=== PATIENT | male | born 1985 | race Caucasian/White ===

== ENCOUNTER 2024-08-05 14:36 | Emergency (ER) | payer OTHER, SELFPAY ==
[2024-08-05] VITALS (14 sets, daily range): BP systolic 120–125; BP diastolic 75–87; PULSE 57–64; RESP 8–25; TEMP 37.2; O2SAT 94–99
--- NOTE | 2024-08-05 14:45 | RT.EKG_ITS ---
APPROVED REPORT Exam: Resting ECG Reason for Exam: Chest pain Patient Location: E HR:65 bpm ECG Measurements Heart Rate 65 AXIS SC 142 P 52 QRSd 85 QRS -15 QT 414 T -19 QTc 431 Conclusion Sinus rhythm 65 normal axis no stemi
--- NOTE | 2024-08-05 15:15 | DI.RAD_ITS ---
Exam(s) XR CHEST 2V PA LATERAL EXAM: XR CHEST 2V PA LATERAL CLINICAL HISTORY: chest pain TECHNIQUE: 2D digital imaging was performed. Two views. COMPARISON: No exams were available for comparison FINDINGS: HEART: Normal size. Aorta: Not dilated. PULMONARY VASCULATURE: Normal. MEDIASTINUM: Unremarkable. LUNGS: Clear. PLEURAL SPACE: No pleural effusion or pneumothorax. BONE:Unremarkable for age. SOFT TISSUES: Unremarkable. IMPRESSION: No acute abnormality. DATA REPOSITORY: RADIATION DOSE DELIVERED:
--- NOTE | 2024-08-05 15:19 | ED.GENADUL_ITS ---
Discharge Plan Disposition Patient Disposition: Home Discharge Details Clinical Impression: Chest pain Primary Care Provider: [facility] [place] [place] ED Provider: Yari Caruso Home Meds and New Rx's Prescriptions: No Action riboflavin (vitamin B2) 1 tab PO DAILY propranolol 60 mg capsule,extended release 24 hr 60 mg PO DAILY Patient Comments: Pt takes for palpitations Discharge Instructions Instructions: Chest Pain (DC) Additional Instructions: - ER work up is unremakrable. No signs of acute problem with your heart - Pain more likely to be reflux or muscle strain. you can try tums, pepic, motrin to help with these. HPI General Date/Time Provider Initiated Documentation: 08/05/24 15:10 . Limitations to Documentation: no limitations . Information obtained by: patient . HPI Narrative: 39-year-old gentleman without significant past medical history presents for evaluation of chest pain. Reports onset of left-sided chest pain yesterday. It is intermittent. He cannot identify any exacerbating or relieving factors. Not associated with any shortness of breath. Does have some mild nausea and just does not feel well. He reports that he has been doing a house painting project since yesterday but does not feel that this is associated with the painting. 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 Pain is over the left chest. Does not radiate. He has never had pain like this before. He says that it may be some really bad heartburn but he is not sure. He denies smoking history. He reports that he takes propranolol for palpitations but no high blood pressure history or diabetes. No significant family coronary history. Related Data Home Medications ?Medication ?Instructions ?Recorded ?Confirmed propranolol 60 mg capsule,24 60 mg PO DAILY 08/05/24 08/05/24 hr,extended release riboflavin (vitamin B2) 1 tab PO DAILY 08/05/24 08/05/24 Allergies Allergy/AdvReac Type Severity Reaction Status Date / Time No Known Allergies Allergy Verified 08/05/24 14:51 General Stated Complaint: Chest Pain EARNESTINE: 3 Exam Narrative Exam Narrative: Review of Systems: All systems reviewed & are unremarkable except as noted in HPI and below Well-developed, no acute distress NCAT PERRL, normal conjunctiva RRR no murmur, no chest wall tenderness Unlabored respiratory effort, CTAB Nondistended abdomen Extremities w/o edema Course Vital Signs Vital signs: Vital Signs Temperature 37.2 C 10/10/24 14:46 Pulse 64 08/05/24 14:46 Respiratory Rate 16 08/05/24 14:46 Blood Pressure 125/84 08/05/24 14:46 Pulse Oximetry 97 08/05/24 14:46 Temperature 37.2 C 08/05/24 14:46 Temperature Source Oral 08/05/24 14:46 Pulse 64 08/05/24 14:46 Respiratory Rate 16 08/05/24 14:46 Respiratory Effort Normal, Non-Labored 08/05/24 14:51 Blood Pressure 125/84 08/05/24 14:46 Blood Pressure Position Sitting 08/05/24 14:46 Pulse Oximetry 97 08/05/24 14:46 Oxygen Delivery Method Room Air 08/05/24 14:46 Oxygen Flow Rate 0 08/05/24 14:46 Pain Level 5 08/05/24 14:46 Medical Decision Making Emergent evaluation of chest pain. Patient does not have significant risk factors for ACS or CAD. His EKG was reviewed and independently interpreted: Sinus [address] flattening with T wave inversions. No prior EKGs for comparison. Plan for cardiac monitoring, blood work, will check troponin. Chest x-ray to evaluate for other etiologies of chest pain. Lab work reviewed. No leukocytosis or anemia. His chemistry is unremarkable without electrolyte derangement. His high-sensitivity troponin is less than 4. BNP also negative. Chest x-ray reviewed and independently interpreted: No focal consolidation, normal heart size, no pulmonary edema or pleural effusion. At this time there is no evidence of acute or emergent etiology of the patient's chest pain. Given that it has been over 24 hours and his troponin is less than 4 and his EKG does not show acute ischemic changes, I have a very low suspicion that there is any cardiogenic etiology of his pain. Likely musculoskeletal. Patient thinks it might be reflux. I have encouraged him to take medications for either of these etiologies and follow-up with PCP. Quality:SDOH Health Related Social Needs: No Data to Display PFSH All Active Problems (Updated 08/05/24 @ 16:29 by Yari Caruso MD) Chest pain (Acute) Social History Smoking/Tobacco Use Status: Never Smoking risk assessment performed?: Yes Alcohol Intake: current Alcohol Intake frequency: a few times a week Alcohol type: beer Drug use: Never Substance use type: does not use Do you feel safe at home: Yes Do you feel safe in your relationship?: Yes PAWSS Have you Been Recently Intoxicated or Drunk Within the Last 30 days?: No Have you Ever Experienced Previous Episodes of Alcohol Withdrawal?: No Have you ever Experienced Withdrawal Seizures?: No Have you ever Experienced Delirium Tremens(DT)s?: No Have you ever undergone Alcohol Rehabilitation Treatment (i.e, inpt ot outpatien t treatment programs)?: No Have you ever Experienced Blackouts?: No Have you ever Combined Alcohol with other Downers within the last 90 days?: No Have you ever Combined Alcohol with any other Substance of Abuse during the last 90 days?: No Positive Blood Alcohol level on Presentation? [PCS.BAL]: No Evidence of Increased Autonomic Activity (i.e. HR>120, tremor, sweating, agitation, nausea)?: No Result: 0
[2024-08-05 15:33] LABS: Abs Immature Grans 0.01 10^3/uL (0.0-0.06); Absolute Basophil Count 0.04 10^3/uL (0.0-0.2); Absolute Eosinophil Count 0.08 10^3/uL (0.0-0.7); Absolute Lymphocyte Count 1.48 10^3/uL (1.2-3.4); Absolute Neutrophil Count 2.74 10^3/uL (1.2-6.7); Basophils % 0.9 %; Eosinophils % 1.7 %; HCT 47.5 % (40.0-50.0); Immature Grans % 0.2 %; Lymphocytes % 31.8 %; MCH 31.2 pg (27.0-33.0); MCHC 33.7 % (32.0-36.0); MCV 93 fL (80-95); MPV 10.7 fL (8.0-11.0); Monocytes % 6.5 %; Neutrophils % 58.9 %; Platelet Count 232 10^3/uL (130-400); RBC 5.13 10^6/uL (4.36-5.78); RDW 11.9 % (11.8-14.1); RDW-SD 40.7 fL; WBC 4.65 10^3/uL (4.4-10.8)
[2024-08-05 15:57] LABS: ALT 31 U/L (16-63); AST 20 U/L (15-37); Alkaline Phosphatase 81 U/L (46-116); Anion Gap 8.1 mmol/L (3-11); BUN 13 mg/dL (7-18); Bilirubin, Total 0.79 mg/dL (0.2-1.0); CO2 35.9 mmol/L (21.0-32.0); CREATININE 1.1 mg/dL (0.70-1.30); Calcium 9.8 mg/dL (8.5-10.1); Chloride 101 mmol/L (98-107); Estimated GFR 86.49 (mL/min/1.73m2); Glucose 95 mg/dL (74-106); Magnesium 1.9 mg/dL (1.8-2.4); NT-proBNP 26 pg/mL (<300); Potassium 3.5 mmol/L (3.5-5.1); Sodium 145 mmol/L (136-145); Total Protein 7.9 g/dL (6.4-8.2)
[2024-08-05 16:01] LABS: Troponin I < 4 ng/L (<or=76)
[2024-08-05 16:41] LABS: Troponin I < 4 ng/L (<or=76)
--- OUTSIDE RECORDS SUMMARY | 2024-08-05 16:57 | XMS_ITS | Encounter Summary ---
Author Organization [facility] Address [address] [place] [id number] Care Team Providers Care Tripe Cooker Name Role Phone No, Pcp (Do Not Change Name) Primary Care Provid er Unavailable Encounter Details Date Type Department Care Team Description 11/03/2020 Travel Social History Tobacco Use Types Packs/Day Years Used Date Smoking Tobacco: Never Assessed Sex and Gender Information Value Date Recorded Sex Assigned at Not on file Gender Identity Not on file Sexual Orientation Not on file COVID-19 Exposure Response Date Recorded In the last month, have you been in contact with someone who was confirmed or suspected to have Coronavirus / COVID-19? No / Unsure 11/03/2020 5:29 PM EST documented as of this encounter Plan of Treatment Not on file documented as of this encounter Visit Diagnoses Not on filedocumented in this encounter Care Teams Tripe Cooker Relationship Specialty Start Date End Date No, Pcp (Do Not Change Name) PCP - General 11/03/20 documented as of this encounter
--- OUTSIDE RECORDS SUMMARY | 2024-08-05 16:57 | XMS_ITS ---
Author Name [facility] Organization Unknown Results Test Name/Text Value Interpretation Date Range Source Albumin/Glob SerPl 1.7 Normal [id number] 1 - 2.2 [facility] Prot SerPl-mCnc 7.3g/dL Normal [id number] 6.6 - 8.7 [facility] Globulin Plas-mCnc 2.7g/dL Normal [id number] 2.3 - 3. 5 [facility] AST/ALT SerPl-cRto 1.1 Normal [id number] - [facility] ALP SerPl-cCnc 68U/L Normal 9 - 122 [facility] ALT SerPl w/o P-5'-P-cCnc 25U/L Normal 9 - 59 [facility] Bilirub SerPl-mCnc 0.5mg/dL Normal [id number] - [facility] Direct SerPl-mCnc 0.2mg/dL Normal [id number] - [facility] AST SerPl w P-5'-P-cCnc 27U/L Normal [id number] 10 - 35 [facility] Albumin SerPl BCG-mCnc 4.6g/dL Normal [id number] 3.6 - 4.9 [facility] Chloride SerPl-sCnc 102mmol/L Normal [id number] 98 - 10 7 [facility] Calcium SerPl-mCnc 10.5mg/dL Above high normal [id number] 8.8 - 10.2 [facility] HCO3 SerPl-sCnc 28mmol/L Normal [id number] 20 - 30 [facility] Glucose SerPl-mCnc 96mg/dL Normal [id number] 70 - 100 [facility] GFR/BSA.pred SerPlBld BYV-WHU-ItUZfp 60mL/min/1.73 m2 Normal [id number] - [facility] BUN SerPl-mCnc 13mg/dL Normal [id number] 6 - 20 [facility] Potassium SerPl-sCnc 4.4mmol/L Normal [id number] 3.3 - 5.3 [facility] Sodium SerPl-sCnc 140mmol/L Normal 136 - 144 [facility] BUN/Creat SerPl 11.4 Normal [id number] 8 - 23 [facility] Anion Gap3 SerPl-sCnc 10 Normal [id number] 7 - 1 7 [facility] Creat SerPl-mCnc 1.14mg/dL Normal [id number] 0.4 - 1.3 [facility] Troponin T SerPl HS-mCnc 9ng/L Normal - [facility] Troponin T SerPl HS-mCnc -3ng/L Normal [id number] [facility] Lymphocytes # Bld Auto 1.92r9563/uL Normal 0.6 - 3.7 [facility] nRBC # Bld Auto 1v3417/uL Normal [id number] 0 - 1 [facility] Hgb Bld-mCnc 16.7g/dL Normal [id number] 13.2 - 17.1 [facility] Monocytes/leuk NFr Bld Auto 5.2% Normal [id number] 4 - 12 [facility] PMV Bld Auto 10.3fL Normal [id number] 8 - 12 [facility] MCHC RBC Auto-mCnc 35.2g/dL Normal 31 - 36 [facility] Basophils/leuk NFr Bld Auto 0.7% Normal [id number] 0 - 1.4 [facility] Neutrophils # Bld Auto 3.41b0901/uL Normal [id number] 2 - 7.6 [facility] WBC # Bld Auto 3d4242/uL Normal [id number] 4 - 11 [facility] MCH RBC Qn Auto 32.5pg Normal [id number] 27 - 33 [facility] RBC # Bld Auto 5.14M/uL Normal [id number] 4 - 6 [facility] Imm Granulocytes/leuk NFr Bld Auto 0.2% Normal [id number] 0 - 1 [facility] Platelet # Bld Auto 102c4195/uL Normal [id number] 150 - 420 [facility] Imm Granulocytes # Bld Auto 0.30m8975/uL Normal [id number] 0 - 0.3 [facility] nRBC/100 WBC Bld Auto-Rto 0% Normal [id number] 0 - 1 [facility] Neutrophils/leuk NFr Bld Auto 64.9% Normal [id number] 39 - 72 [facility] Monocytes # Bld Auto 0.40m9120/uL Normal [id number] 0 - 1 [facility] RDW RBC Auto-Rto 12.1% Normal [id number] 11 - 15 [facility] Hct VFr Bld Auto 47.5% Normal [id number] 38.5 - 50 [facility] Eosinophil/leuk NFr Bld Auto 1.2% Normal [id number] 0 - 5 [facility] Lymphocytes/leuk NFr Bld Auto 27.8% Normal [id number] 17 - 50 [facility] Eosinophil # Bld Auto 0.60m8553/uL Normal [id number] 0 - 1 [facility] MCV RBC Auto 92.4fL Normal [id number] 80 - 100 [facility] BKR WAM BASOPHIL ABSOLUTE COUNT. 0.44x9114/uL Normal [id number] 0 - 1 [facility] Lipase SerPl-cCnc 23U/L Normal [id number] 11 - 55 [facility]
--- OUTSIDE RECORDS SUMMARY | 2024-08-05 16:57 | XMS_ITS | Encounter Summary ---
Author Organization [facility] and [facility] Address [address] [place] [address] Care Team Providers Care Hand Scudder Name Role Phone No, Pcp (Do Not Change Name) Primary Care Provid er Unavailable Reason for Visit * Reason Comments Chest Pain Atraumatic left cp i ntermittent since this morning. nonradiating/nonreproducible. * Auth/Cert (Routine) Specialty Diagnoses / Procedures Referred By Aixa lee Referred To Contact Emergency Medicine [facility] Emergency Adult [address] [place], [place] [id number] Referral ID Status Reason Start Date Expiration Date Visits Re quested Visits Authorized [id number] 1 1 Encounter Details Date Type Department Care Team Description 10/31/2023 6:11 PM EST - 10/31/2023 10:06 PM EST Emergency [facility] Emergency Department [address] [place], [place] [id number] Ankita Godinez MD [address] [place] [phone] Chest pain, unspecified type (Primary Dx) Discharge Disposition: Home or Self Care Social History Tobacco Use Types Packs/Day Years Used Date Smoking Tobacco: Never Assessed Sex and Gender Information Value Date Recorded Sex Assigned at Not on file Gender Identity Not on file Sexual Orientation Not on file documented as of this encounter Last Filed Vital Signs Vital Sign Reading Time Taken Comments Blood Pressure 113/78 10/31/2023 9:43 PM EST Pulse 54 10/31/2023 9:43 PM EST Temperature 36.5 ??C (97.7 ??F) 10/31/2023 9:43 PM ES T Respiratory Rate 18 10/31/2023 9:43 PM EST Oxygen Saturation 97% 10/31/2023 9:43 PM EST Inhaled Oxygen Concentration - - Weight - - Height - - Body Mass Index - - documented in this encounter Discharge Instructions * Discharge Instructions* Ankita Godinez MD - 10/31/2023 9:51 PM EST Please follow-up with your primary care provider within 3 to 5 days of being seen in the emergency department. Please return to the emergency department with persistent chest pain, worsening pain, shortness of breath, dizziness, nausea, vomiting, or with any other changes or new symptoms. I recommend that you resume taking your medications for acid reflux as recommended by your outpatient provider. I also recommend that you refrain from consuming alcohol until your symptoms resolve. * Attachments The following attachments cannot be sent through Care Everywhere. * Chest Pain Discharge Instructions (Albanian) documented in this encounter ED Notes * Estevan Gutierrez RN - 10/31/2023 7:18 PM EST 7:18 PM Aox4 speaking in full clear sentences. CC CP, pt reports sharp left sided non radiating cp around 8am. Pain has been intermittent since. No sob, n/v/d, f/c or abdominal pain. Pain isnt reproducible to touch. Nothing worsens pain or makes it better. 10:05 PM Discharge education provided. Pt ambulatory to exit with steady gait. * Ankita Godinez MD - 10/31/2023 6:22 PM EST Chief Complaint Patient presents with ??? Chest Pain Atraumatic left cp intermittent since this morning. nonradiating/nonreproducible. An acute or life threatening problem was considered during this evaluation A decision regarding hospitalization was made during this visit Patient does not require admission or further ED Observation at this time Independent interpretation of: XRay Physical Exam ED Triage Vitals [10/31/23 1639] BP: (!) 139/98 Pulse: 64 Pulse from O2 sat: n/a Resp: 18 Temp: 97.6 ??F (36.4 ??C) Temp src: Temporal SpO2: 98 % BP 113/78 Pulse (!) 54 Temp 97.7 ??F (36.5 ??C) Resp 18 SpO2 97% Physical Exam Vitals and nursing note reviewed. Constitutional: General: He is not in acute distress. Appearance: Normal appearance. He is not toxic-appearing. HENT: Head: Normocephalic. Right Ear: External ear normal. Left Ear: External ear normal. Eyes: Conjunctiva/sclera: Conjunctivae normal. Cardiovascular: Rate and Rhythm: Bradycardia present. Pulmonary: Effort: Pulmonary effort is normal. No respiratory distress. Abdominal: General: There is no distension. Musculoskeletal: General: No deformity. Cervical back: Normal range of motion. Skin: Findings: No rash. Neurological: General: No focal deficit present. Mental Status: He is alert. Psychiatric: Mood and Affect: Mood normal. Behavior: Behavior normal. Procedures Attestation/Critical Care Patient Reevaluation: 38 yo M with hx palpitations here for eval of intermittent, non-radiating, left-sided CP which has been present since this morning. Pt is unable to identify activities or positions that clearly exacerbate his symptoms. Denies recent infectious symptoms. Initial ddx includes arrhythmia vs electrolyte abnormality vs GERD vs gastritis vs PUD vs esophageal spasm vs ACS/RI vs anxiety; doubt dissection vs PE vs PNA Work up generally reassuring, and I believe that pt is stable for discharge. He was initially hesitant to be discharged without a definitive chest pain diagnosis, and I offered him admission to the chest pain center. He prefers to be discharged with plan for outpatient follow up at the [place] where he receives most of his care. I advised him to restart his home medications for GERD and to cease from drinking alcohol until his symptoms resolve. Advised him to return to ED with persistent or new symptoms. Ankita Godinez MD Patient progress: stable Clinical Impressions as of 11/08/232031 Chest pain, unspecified type ED Disposition Discharge Ankita Godinez MD 11/08/232041 documented in this encounter Plan of Treatment Pending Results Name Type Priority Associated Diagnoses Date /Time ED Diagnostic Ultrasound Echo Imaging Within 2 hours (STAT) 10/31/2023 7:24 PM EST Scheduled Orders Name Type Priority Associated Diagnoses Order Schedule ED Diagnostic Ultrasound Echo Imaging Within 2 hours (STAT) One time imaging One time imaging for 1 Occurrences starting 10/31/2023 until 10/31/2023 documented as of this encounter Procedures Procedure Name Priority Date/Time Associated Diagnosis Comments TROPONIN T HIGH SENSITIVITY, 1 HOUR WITH REFLEX ( [facility] LMW YH) STAT - Timed 10/31/2023 8:27 PM EST BASIC METABOLIC PANEL STAT 10/31/2023 7:16 PM EST TROPONIN T HIGH SENSITIVITY, 0 HOUR BASELINE WITH REFLEX ([facility] LMW YH) STAT 10/31/2023 7:16 PM EST CBC WITH AUTO DIFFERENTIAL STAT 10/31/2023 7:16 PM EST CBC AND DIFFERENTIAL STAT 10/31/2023 7:16 PM EST LIPASE Add-On 10/31/2023 7:16 PM EST HEPATIC FUNCTION PANEL Add-On 10/31/2023 7:16 PM EST BASIC METABOLIC PANEL STAT 10/31/2023 7:16 PM EST XR CHEST PA AND LATERAL STAT 10/31/2023 6:02 PM EST EKG STAT 10/31/2023 4:43 PM EST documented in this encounter Results * Troponin T High Sensitivity, 1 Hour With Reflex ( [facility] LMW YH) (10/31/2023 8:27 PM EST) High Sensitivity Troponin T <6 See Comment ng/L 10/31/2023 9:14 PM EST [facility] MED[facility] Comment:High Sensitivity Tro ponin T levels should be interpreted in the context of the [facility] Care Signature pathway. 1 hour Delta from 0 Hour, HS-Troponin T -3 ng/L 10/31/2023 9:14 PM EST [facility]IC[facility] Blood Venipuncture / Unknown 10/31/2023 8:27 PM EST 10/31/2023 8:44 PM EST Ankita Godinez MD LAB BLOOD ORDERABLES Performing Organization Address [facility] de Phone Number [facility] MEDICINE [address] [place] [address] * Lipase (10/31/2023 7:16 PM EST) Lipase 23 11 - 55 U/L 10/31/2023 7:52 PM EST [facility] Blood Venipuncture / Unknown 10/31/2023 7:16 PM EST 10/31/2023 7:22 PM EST Salvatore Valenzuela MD LAB BLOOD ORDERABLES Performing Organization Address [facility] de Phone Number [facility] MEDICINE [address] [place] [address] * Hepatic function panel (10/31/2023 7:16 PM EST) Total Bilirubin 0.5 <=1.2 mg/dL 10/31/19 7:52 PM [facility] DEPARTMENT OF LABORATORY MEDICINE Bilirubin, Direct <0.2 <=0.3 mg/dL 2023 7:52 PM [facility] LAB[facility]ATORY MEDICINE Alkaline Phosphatase 68 9 - 122 U/L 10/31/2023 7:52 PM [facility] LAB[facility]ORY MEDICINE Alanine Aminotransferase (ALT) 25 9 - 59 U/L 10/31/2023 7:52 PM [facility] MEDIC[facility] Comment:Calcium dobesilate c an cause artificially low ALT results at therapeutic concentrations Aspartate Aminotransferase (AST) 27 10 - 35 U/L 10/31/2023 7:52 PM [facility] OF LAB[facility]ORY MEDICINE AST/ALT Ratio 1.1 Reference Range Not Established 10/31/2023 7:52 PM [facility]ORY MEDIC[facility] Total Protein 7.3 6.6 - 8.7 g/dL 024 7:52 PM EST [facility] Albumin 4.6 3.6 - 4.9 g/dL 10/31/2023 7:52 PM EST [facility] Globulin 2.7 2.3 - 3.5 g/dL 10/31/2023 7:52 PM EST [facility] A/G Ratio 1.7 1.0 - 2.2 10/31/2023 7:52 PM EST [facility] Blood Venipuncture / Unknown 10/31/2023 7:16 PM EST 10/31/2023 7:22 PM EST Salvatore Valenzuela MD LAB BLOOD ORDERABLES Performing Organization Address [facility] Co de Phone Number [facility]ORY MEDICINE [address] [place] [address] * Troponin T High Sensitivity, Emergency; 0 hour baseline AND 1 hour with reflex (3 hour) (47:16 PM EST) Pathologist [facility] Emergency Department High Sensitivity Troponin T 9 See Comment ng/L 10/31/2023 7:51 PM EST [facility] Comment:High Sensitivity Tro ponin T levels should be interpreted in the context of the [facility] Care Signature pathway. Blood Venipuncture / Unknown 10/31/2023 7:16 PM EST 10/31/2023 7:22 PM EST Ankita Godinez MD LAB BLOOD ORDERABLES [facility] [address] [place] [address] * (ABNORMAL) Basic metabolic panel (10/31/2023 7:16 PM EST) Sodium 140 136 - 144 mmol/L 10/31/2023 7:52 PM EST [facility] Potassium 4.4 3.3 - 5.3 mmol/L 10/31/2023 7:52 PM EST [facility] Chloride 102 98 - 107 mmol/L 10/31/2023 7:52 PM [facility] DEPARTMENT OF LABORATORY MEDICINE CO2 28 20 - 30 mmol/L 10/31/2023 7:52 PM [facility] MED[facility] Anion Gap 10 7 - 17 10/31/2023 7:52 PM [facility] MEDIC[facility] Glucose 96 70 - 100 mg/dL 10/31/2023 7:52 PM [facility] LAB[facility] MEDIC[facility] BUN 13 6 - 20 mg/dL 10/31/2023 7:52 PM [facility] MEDIC[facility] Creatinine 1.14 0.40 - 1.30 mg/dL 10/31/2023 7:52 PM [facility] LAB[facility]ORY MEDICINE Calcium 10.5(H) 8.8 - 10.2 mg/dL 10/31/2023 7:52 PM [facility] OF LAB[facility]ORY MEDICINE BUN/Creatinine Ratio 11.4 8.0 - 23.0 10/31/2023 7:52 PM [facility] OF LAB[facility]ATORY MEDICINE eGFR (Creatinine) >60 >=60 mL/min/1. 73m2 10/31/2023 7:52 PM [facility] LAB[facility]ORY MEDICINE Comment: Values < 60 mL/min/1.73 m2 may indicate CKD if present for more than three months AND creatinine is at steady state. The eGFR provides a rough estimate of kidney function. On 06/11/22 all [facility] Clinical Labs and Epic began using a [id number] formula for estimating GFR called CKD-EPI Creatinine 2020. This equation reports eGFR based on creatinine, patient age, clinical sex, and is standardized to a body surface area of 1.73 m2. For the same creatinine, this new race-free eGFR will be lower than prior reported Black eGFR results and higher than prior Non-Black eGFR results. For further guidance, please refer to the CKD: Adult Welder Fitter Signature pathway. Blood Venipuncture / Unknown 10/31/2023 7:16 PM EST 10/31/2023 7:22 PM EST Ankita Godinez MD LAB BLOOD ORDERABLES [facility] MEDICINE [address] [place] [address] * CBC auto differential (10/31/2023 7:16 PM [facility]) [facility] [address] WBC 6.0 4.0 - 11.0 x1000/??L 10/31/2023 7:29 PM [facility] DEPART[facility] OF LAB[facility]ATORY MEDICINE RBC 5.14 4.00 - 6.00 M/??L 10/31/2023 7:29 PM [facility]ORY MEDICINE Hemoglobin 16.7 13.2 - 17.1 g/dL 10/31/2023 7:29 PM [facility] MEDIC[facility] Hematocrit 47.50 38.50 - 50.00 % 10/31/2023 7:29 PM [facility] LAB[facility]ORY MEDICINE MCV 92.4 80.0 - 100.0 fL 10/31/2023 7:29 PM [facility] LAB[facility]ORY MEDICINE MCH 32.5 27.0 - 33.0 pg 10/31/2023 7:29 PM [facility] LAB[facility]ORY MEDICINE MCHC 35.2 31.0 - 36.0 g/dL 10/31/2023 7:29 PM [facility] MEDIC[facility] RDW-CV 12.1 11.0 - 15.0 % 10/31/2023 7:29 PM [facility] MEDIC[facility] Platelets 235 150 - 420 x1000/??L 10/31/2023 7:29 PM [facility] MEDIC[facility] MPV 10.3 8.0 - 12.0 fL 10/31/2023 7:29 PM [facility]IC[facility] Neutrophils 64.9 39.0 - 72.0 % 10/31/2023 7:29 PM [facility] Lymphocytes 27.8 17.0 - 50.0 % 10/31/2023 7:29 PM [facility] Monocytes 5.2 4.0 - 12.0 % 10/31/2023 7:29 PM [facility] Eosinophils 1.2 0.0 - 5.0 % 10/31/2023 7:29 PM [facility] MEDIC[facility] Basophil 0.7 0.0 - 1.4 % 10/31/2023 7:29 PM [facility] Immature Granulocytes 0.2 0.0 - 1.0 % 10/31/2023 7:29 PM [facility] nRBC 0.0 0.0 - 1.0 % 10/31/2023 7:29 PM [facility] LAB[facility]ORY MEDIC[facility] ANC(Abs Neutrophil Count) 3.88 2.00 - 7.60 x 1000/??L 10/31/2023 7:29 PM [facility] LAB[facility] MEDIC[facility] Absolute Lymphocyte Count 1.66 0.60 - 3.70 x 1000/??L 10/31/2023 7:29 PM [facility] MEDIC[facility] Monocyte Absolute Count 0.31 0.00 - 1.00 x 1000/??L 10/31/2023 7:29 PM [facility] MEDIC[facility] Eosinophil Absolute Count 0.07 0.00 - 1.00 x 1000/??L 10/31/2023 7:29 PM [facility]ORY MEDIC[facility] Basophil Absolute Count 0.04 0.00 - 1.00 x 1000/??L 10/31/2023 7:29 PM [facility] LAB[facility]ORY MEDIC[facility] Absolute Immature Granulocyte Count 0.01 0.00 - 0.30 x 1000/??L 10/31/2023 7:29 PM [facility] OF LABORATORY MEDICINE Absolute nRBC 0.00 0.00 - 1.00 x 1000/??L 10/31/2023 7:29 PM [facility] LAB[facility]ORY MEDICINE Blood Venipuncture / Unknown 10/31/2023 7:16 PM EST 10/31/2023 7:22 PM EST Ankita Godinez MD LAB BLOOD ORDERABLES Performing Organization Address City/State/[facility] Co de Phone Number [facility]ORY MEDICINE [address] [place] [address] * CXR (10/31/2023 6:02 PM EST) Anatomical Region Laterality Modality Chest Digital Radiogra phy 10/31/2023 6:07 PM EST Impressions 10/31/2023 6:29 PM EST No acute cardiothoracic abnormality. [facility] Classification: Routine. Report initiated by: ??Jose De Anda MD Reported and signed by: Luis M Rausch MD [facility] Narrative 10/31/2023 6:29 PM EST XR CHEST PA AND LATERAL INDICATION: chest pain COMPARISON: None available at our institution. FINDINGS: ?? The cardiomediastinal silhouette is normal. No focal consolidation. The pleural spaces are clear. There is no acute osseous injury. Procedure Note Luis M Rausch MD - 10/31/2023 XR CHEST PA AND LATERAL INDICATION: chest pain COMPARISON: None available at our institution. FINDINGS: The cardiomediastinal silhouette is normal. No focal consolidation. The pleural spaces are clear. There is no acute osseous injury. IMPRESSION: No acute cardiothoracic abnormality. [facility] Classification: Routine. Report initiated by: Jose De Anda MD Reported and signed by: Luis M Rausch MD [facility] Ankita Godinez MD IMG DIAGNOSTIC IMAGI NG ORDERABLES * EKG (10/31/2023 4:43 PM EST) Heart Rate 67 bpm [facility] EKG QRS Interval 85 ms [facility] EKG QT Interval 397 ms [facility] EKG QTC Interval 419 ms [facility] EKG P [place] 30 deg [facility] EKG QRS [place] -18 deg [facility] EKG T Wave [place] -9 deg [facility] EKG P-R Interval 147 msec [facility] EKG SEVERITY Borderline ECG severity [facility] EKG Comment::Sinus rhythm:Border line left axis deviation:Low voltage, precordial leads:Borderline T abnormalities, anterior leads:Confirmed on behalf of NO EDIT ED READ On 11-07-2023 7:59:53 EST by Eduar 10/31/2023 4:43 PM EST Ankita Godinez MD ECG ORDERABLES [facility] EKG documented in this encounter Visit Diagnoses Diagnosis Chest pain, unspecified type- Primary documented in this encounter Administered Medications Inactive Administered Medications - up to 3 most recent administrations Medication Order MAR Action Action Date Dose Rate Site aluminum-magnesium hydroxide-simethicone (MAALOX) 200-200-20 mg/5 mL suspension 30 mL 30 mL, Oral, Before Meals & At Bedtime, First dose on Fri10/31/23 at 2200, Do not give if patient NPO for procedure Common Side Effects: Chalky taste, stomach upset. Given 10/31/2023 7:36 PM EST 30 mLs famotidine (PF) (PEPCID) 20 mg in sodium chloride 0.9% PF 5 mL Injection 20 mg, IV Push, ONCE, On Fri10/31/23 at 1930, For 1 dose, Maximum IV Push dose of 40 mg. Dilute to a final concentration of 4 mg/mL with ordered diluent and administer over 2 minutes. Common Side Effects include: Dizziness, headache, stomach upset and confusion., Pharmacist will implement Pharmacist IV to Enteral Conversion Protocol unless otherwise specified: Implement Protocol, Protocol: [email or web address]/P rotocol%20Repository/Intravenous%2 0to%20Enteral%20Conversion%20(Adul t)%20Protocol/Intravenous%20to%20E nteral%20Conversion%20(Adult)%20Pr otocol%[email or web address].pdf, Pharmacist will implement [facility] Renal Dose Adjustment Protocol unless otherwise specified: Implement Protocol, Protocol: [email or web address] [email or web address]/Renal%20Dose% 20Adjustment%20Protocol/Renal%20Do se%20Adjustment%20Protocol%20v23.0 [email or web address].pdf Given 10/31/2023 7:37 PM EST 20 mg documented in this encounter Active and Recently Administered Medications Times are shown in EST. Scheduled Medication Order 10/29/2023 10/30/2023 10/31/2023 aluminum-magnesium hydroxide-simethicone (MAALOX) 200-200-20 mg/5 mL suspension 30 mL 30 mL, Oral, Before Meals & At Bedtime, First dose on Fri10/31/23 at 2200, Do not give if patient NPO for procedure Common Side Effects: Chalky taste, stomach upset. 1935 (Given - Provid er: Estevan Gutierrez RN)2103 (Not Given - Provider: Estevan Gutierrez RN - Reason: Other (Specify in Comments) - Comment: previously given) famotidine (PF) (PEPCID) 20 mg in sodium chloride 0.9% PF 5 mL Injection (COMPLETED) 20 mg, IV Push, ONCE, On Fri10/31/23 at 1930, For 1 dose, Maximum IV Push dose of 40 mg. Dilute to a final concentration of 4 mg/mL with ordered diluent and administer over 2 minutes. Common Side Effects include: Dizziness, headache, stomach upset and confusion., Pharmacist will implement Pharmacist IV to Enteral Conversion Protocol unless otherwise specified: Implement Protocol, Protocol: [email or web address]/ Protocol%20Repository/Intravenous %20to%20Enteral%20Conversion%20(A dult)%20Protocol/Intravenous%20to %20Enteral%20Conversion%20(Adult) %20Protocol%[email or web address].pdf , Pharmacist will implement [facility] Renal Dose Adjustment Protocol unless otherwise specified: Implement Protocol, Protocol: [email or web address]/ Protocol%20Repository/Renal%20Dos e%20Adjustment%20Protocol/Renal%2 0Dose%20Adjustment%20Protocol%20v [email or web address].pdf 1936 (Given - Provid er: Estevan Gutierrez RN) documented in this encounter Care Teams Hand Scudder Relationship Specialty Start Date End Date No, Pcp (Do Not Change Name) PCP - General 11/03/20 documented as of this encounter
--- OUTSIDE RECORDS SUMMARY | 2024-08-05 16:57 | XMS_ITS | Clinical Summary ---
Author Organization [facility] [address] [facility] Address [address] [place] [phone] Phone Care Team Providers Care Other Spatial Scientist Name Role Phone No, Pcp (Do Not Change Name) Primary Care Provid er Unavailable Medications Medication Sig Dispensed Refills Start Date End Date Status metoprolol tartrate (LOPRESSOR) 25 mg Immediate Release tablet Take 1 tablet (25 mg total) by mouth nightly for 7 days. 7 tablet 0 11/03/2020 Active Social History Tobacco Use Types Packs/Day Years Used Date Smoking Tobacco: Never Assessed Sex and Gender Information Value Date Recorded Sex Assigned at Not on file Gender Identity Not on file Sexual Orientation Not on file Last Filed Vital Signs Vital Sign Reading Time Taken Comments Blood Pressure 113/78 10/31/2023 9:43 PM EST Pulse 54 10/31/2023 9:43 PM EST Temperature 36.5 ??C (97.7 ??F) 10/31/2023 9:43 PM ES T Respiratory Rate 18 10/31/2023 9:43 PM EST Oxygen Saturation 97% 10/31/2023 9:43 PM EST Inhaled Oxygen Concentration - - Weight - - Height - - Body Mass Index - - Plan of Treatment Health Maintenance Due Date Last Done Comments HIV screening 1996 Hepatitis C screening 2001 Lipid disorder screening 2023 Influenza vaccine 05/27/2024 Covid-19 vaccine series ( season) 2024 05/22/2021 Tetanus adult (Td q 10,TDAP once) 06/21/2025 06/21/2015, 05/29/2001 Meningococcal Vaccine Aged Out No christel florian eligible based on patient's age to complete this topic Pneumococcal Vaccine Aged Out No long er eligible based on patient's age to complete this topic Care Teams Other Spatial Scientist Relationship Specialty Start Date End Date No, Pcp (Do Not Change Name) PCP - General 11/03/20
--- OUTSIDE RECORDS SUMMARY | 2024-08-05 16:57 | XMS_ITS | Encounter Summary ---
Author Organization [facility] and [facility] Address [address] [place] [id number] Care Team Providers Care Analysis Director Name Role Phone No, Pcp (Do Not Change Name) Primary Care Provid er Unavailable Reason for Visit * Reason Comments Palpitations palpitations all day that have been worsening. Pt reports thathe feels his heart has been skipping every 2 seconds. Pt denies similar in the past. Pt reports tea daily, no smoking, denies drugs/etoh. * Auth/Cert Specialty Diagnoses / Procedures Referred By Aixa lee Referred To Contact Emergency Medicine [facility] Emergency Adult [address] [place] [address] Referral ID Status Reason Start Date Expiration Date Visits Re quested Visits Authorized [id number] 1 1 Encounter Details Date Type Department Care Team Description 11/03/2020 5:38 PM EST - 11/03/2020 9:42 PM EST Emergency [facility] Emergency Department [address] [place] [address] Kirill Lang MD [address] [place] [phone] Palpitations (Primary Dx) Discharge Disposition: Home or Self [...] PM EST documented as of this encounter Last Filed Vital Signs Vital Sign Reading Time Taken Comments Blood Pressure 122/83 11/03/2020 8:10 PM EST Pulse 62 11/03/2020 8:10 PM EST Temperature 36.5 ??C (97.7 ??F) 11/03/2020 8:10 PM ES T Respiratory Rate 18 11/03/2020 8:10 PM EST Oxygen Saturation 97% 11/03/2020 8:10 PM EST Inhaled Oxygen Concentration - - Weight - - Height - - Body Mass Index - - documented in this encounter Discharge Instructions * Discharge Instructions* Jose Cerda PA - 11/03/2020 8:00 PM EST Your blood tests, EKG, and echocardiogram are all reassuring. We have prescribed a lose dose of metoprolol to help control your symptoms. Take this nightly. Follow up with your primary care provider for reevaluation after trialing this medicine. Return to the ER for new or worsening symptoms. * Attachments The following attachments cannot be sent through Care Everywhere. * Metoprolol tablets (Kazakh) documented in this encounter Medications at Time of Discharge Medication Sig Dispensed Refills Start Date End Date metoprolol tartrate (LOPRESSOR) 25 mg Immediate Release tablet Take 1 tablet (25 mg total) by mouth nightly for 7 days. 7 tablet 0 11/03/2020 documented as of this encounter ED Notes * Kirill Lang MD - 11/03/2020 6:13 PM ESTAssociated Order(s): 12 Lead EKG History Chief Complaint Patient presents with ??? Palpitations palpitations all day that have been worsening. Pt reports thathe feels his heart has been skipping every 2 seconds. Pt denies similar in the past. Pt reports tea daily, no smoking, denies drugs/etoh. The history is provided by the patient. Palpitations Palpitations quality: Regular Onset quality: Chronic (reported 3 years, worst episode today) Timing: Intermittent Chronicity: Worsened today, chronic for several years Relieved by: Exercise and movement Associated symptoms: no chest pain, no chest pressure, no cough, no dizziness, no nausea, no numbness, no orthopnea, no shortness of breath, no vomiting and no weakness No past medical history on file. No past surgical history on file. No family history on file. Social History Socioeconomic History ??? Marital status: Single Spouse name: Not on file ??? Number of children: Not on file ??? Years of education: Not on file ??? Highest education level: Not on file No existing history information found. No existing history information found. No existing history information found. Review of Systems Constitutional: Negative for chills and fever. HENT: Negative for sneezing and sore throat. Respiratory: Negative for cough, chest tightness, shortness of breath and wheezing. Cardiovascular: Positive for palpitations. Negative for chest pain and orthopnea. Gastrointestinal: Negative for abdominal pain, nausea and vomiting. Genitourinary: Negative for dysuria. Musculoskeletal: Negative for arthralgias and myalgias. Skin: Negative for color change. Neurological: Negative for dizziness, weakness, light-headedness, numbness and headaches. Psychiatric/Behavioral: Negative for behavioral problems. All other systems reviewed and are negative. Physical Exam ED Triage Vitals [11/03/20 1739] BP: (!) 147/90 Pulse: 86 Pulse from O2 sat: n/a Resp: 16 Temp: 98.5 ??F (36.9 ??C) Temp src: Oral SpO2: 99 % BP 122/83 Pulse 62 Temp 97.7 ??F (36.5 ??C) (Oral) Resp 18 SpO2 97% Physical Exam Vitals signs and nursing note reviewed. Constitutional: General: He is not in acute distress. Appearance: Normal appearance. HENT: Head: Normocephalic and atraumatic. Nose: Nose normal. Mouth/Throat: Mouth: Mucous membranes are moist. Pharynx: Oropharynx is clear. Eyes: Extraocular Movements: Extraocular movements intact. Conjunctiva/sclera: Conjunctivae normal. Pupils: Pupils are equal, round, and reactive to light. Neck: Musculoskeletal: Normal range of motion and neck supple. No neck rigidity or muscular tenderness. Cardiovascular: Rate and Rhythm: Normal rate and regular rhythm. Pulses: Normal pulses. Heart sounds: Normal heart sounds. No murmur. Comments: Occasional aberrant beats c/w PVC beats Otherwise regular Pulmonary: Effort: Pulmonary effort is normal. No respiratory distress. Breath sounds: Normal breath sounds. Abdominal: General: Abdomen is flat. Bowel sounds are normal. Palpations: Abdomen is soft. Tenderness: There is no abdominal tenderness. Musculoskeletal: Normal range of motion. General: No swelling or tenderness. Skin: General: Skin is warm and dry. Capillary Refill: Capillary refill takes less than 2 seconds. Findings: No bruising. Neurological: General: No focal deficit present. Mental Status: He is alert and oriented to person, place, and time. Sensory: No sensory deficit. Motor: No weakness. Psychiatric: Mood and Affect: Mood normal. Behavior: Behavior normal. Comments: Appears anxious Procedures 12 Lead EKG Date/Time: 11/03/2020 5:40 PM Performed by: Jose Cerda PA Authorized by: Jose Cerda PA Previous ECG: Previous ECG: Unavailable Interpretation: Interpretation: normal Rate: ECG rate: 74 ECG rate assessment: normal Rhythm: Rhythm: sinus rhythm Ectopy: Ectopy: PVCs PVCs: Infrequent (One seen in this EKG) QRS: QRS axis: Normal QRS intervals: Normal Conduction: Conduction: normal ST segments: ST segments: Normal T waves: T waves: normal Resident/JESUS MANUEL MDM: DDx: PVCs, atrial fibrillation, hypothyroidism, electrolyte abnormality Patient is a 35 year old male with no reported PMH presenting for palpitations. Reports that around3 years ago he began having nightly episodes of palpitations after anxiety and a nervous breakdown. States that these episodes have now persisted and are gradually improving as he has improved his anxiety. Reports that today he began having more noticeable episodes with more higher frequency. Reports that these are making him nervous and worried. Denies chest pains or shortness of breath. Denies dizziness, lightheadedness, nausea, vomiting. Reports normally he only feels palpitations at nightbut these have been happening during the day. Denies drugs, alcohol, smoking, or increased anxiety t adenike. Patient repeatedly asks questions concerning this condition and possible effects appearing extremely anxious overall. Exam: Con: well appearing, anxious Cardiac: RRR, occasional ectopic beats c/w PVCs, no murmurs, 2+ distal pulses Lungs: CTAB, no chest wall tenderness Abdomen: soft/non-tender, +bowel sounds MSK: Full ROM to all extremities Neuro: grossly intact Skin: warm, dry Plan for labs, EKG, bedside echo. Labs ordered in triage by Dr. Lang. Discussed with Dr. Lang. Jose Cerda PA-C [facility]: [phone] 8:22 PM Patient discharged. Echo reassuring. EKG sinus rhythm with one PVC noted. Troponin negative. All electrolytes and TSH reassuring. 25mg metoprolol given here and 1 week supply for nightly doses sent to pharmacy. Discussed with patient lifestyle changes versus medication management for symptomatic PVCs. Patient preferred medication trial and understands need to follow up with his primary care provider for further management. ED COURSE ECG interpreted by attending? interpreted by ED physician Rate: normal Rhythm: sinus rhythm. ECG compared to previous: compared with previous ECG. S-T segments: normal. ECG Comments: PVCs. Interpretation: normal ECG. Patient Reevaluation: ED ATTENDING NOTE: Supervised: JOVAN ED Attestation: JOVAN Face to face evaluation was performed by me in collaboration with the Advanced Practice Provider toassess for significant health threats. History of nightly palpitations here with more frequent palpitations. ECG shows occasional PVCs. Onmy exam, patient is anxious but well appearing. No clear triggers identified other than anxiety that the patient endorses. Lab work is within normal limits. While being monitored patient continued tohave only occasional PVCs. Discussion about expectant management with just monitoring versus starting low-dose beta-freddy. Patient wants to start a medication as he feels uncomfortable with palpitations. Will discharge with 25 milligram of metoprolol at night and have him follow [facility] the [facility] for reassessment. Kirill Lang MD 6:13 PM Clinical Impressions as of Nov 05 636 Palpitations ED Disposition Discharge Kirill Lang MD 11/03/201903 Jose Cerda PA 11/03/202023 Jose Cerda PA 11/03/202050 Kirill Lang MD 11/05/20636 * Lindsay Sawant RN - 11/03/2020 6:02 PM EST 6:02 PM 35 y.o. male presents to AED from [facility] care with complaints of worsening palpations. Pt reports he usually has PVCs at night but reported feeling palpitations during the day. Pt denies any caffeine intake, drugs, ETOH. Provider at bedside for assessment. IV placed, labs obtained and sent. 7:27 PM Bedside echo in progress. 8:11 PM Pt medicated as per orders. Pt discharged to home by provider. Pt ambulating to bathroom with steady gait. * Zelalem Cade RN - 11/03/2020 5:31 PM EST 5:31 PM 35 y.o. male comes to the ED w/ c/o Palpitations (palpitations all day that have been worsening. Ptreports thathe feels his heart has been skipping every 2 seconds. Pt denies similar in the past. Ptreports tea daily, no smoking, denies drugs/etoh. ) Pt denies medical Hx and medications. Pt reports being seen at the [facility]. No past medical history on file.. has no past surgical history on file.. Pt's VS currently: There were no vitals filed for this visit.. documented in this encounter Plan of Treatment Not on file documented as of this encounter Procedures Procedure Name Priority Date/Time Associated Diagnosis Comments CARDIAC EKG RESULT SCAN 11/04/2020 12:00 AM EST ED DIAGNOSTIC ULTRASOUND ECHO STAT 11/03/2020 6:43 PM EST ED EKG Routine 11/03/2020 6:13 PM EST TROPONIN I (POC) (LMW YH) Routine 11/03/2020 5:54 PM EST BASIC METABOLIC PANEL STAT 11/03/2020 5:53 PM EST TSH W/REFLEX TO FT4 (BH GH LMW Q YH) Urgent 11/03/2020 5:53 PM EST CBC WITH AUTO DIFFERENTIAL STAT 11/03/2020 5:53 PM EST CBC AND DIFFERENTIAL STAT 11/03/2020 5:53 PM EST PHOSPHORUS (BH GH L LMW YH) STAT 11/03/2020 5:53 PM EST MAGNESIUM STAT 11/03/2020 5:53 PM EST BASIC METABOLIC PANEL STAT 11/03/2020 5:53 PM EST EKG STAT 11/03/2020 5:34 PM EST documented in this encounter Results * CARDIAC EKG RESULT SCAN (11/04/2020 12:00 AM EST) 11/04/2020 Provider Not In System CV CARDIAC REPORT (CVR) * ED Diagnostic Ultrasound Echo (11/03/2020 6:43 PM EST) Anatomical Region Laterality Modality Ultrasound 11/03/2020 6:39 PM EST Narrative 11/05/2020 6:20 AM EST Focused Cardiac (Echo) Ultrasound: ?All required omer must be filled in (*) prior to signature at bottom of worksheet.: ?Please note that all ultrasound images have been saved and stored in the hospital PACS system and are accessible through this system or [employer].: ? This is a focused ED [id number] echo : ?Findings beyond pericardial effusion that are used for clinical decision making should be confirmed with cardiology echo.: ??Exam discussed with attending ?Exam type: ??Diagnostic ?Indications: ?Indications (check all that apply-echo):: ??Palpitations ?Views Obtained: ?Views (echo):: ??PSLA, PSSA, Apical 4 chamber, Sub-xiphoid, IVC ?Findings: ?Effusion (echo): ??no significant effusion ?Systolic function: ??normal ?[place] (echo): ??RV < LV ?Exit (echo): ??aortic root normal (<4.0cm) ?IVC qualitative size (echo): ??Normal (collapse 50% w respiration) ?Interpretation: ?Check all that apply (echo): ??No acute findings Electronically signed by Kirill Lang on Thursday, November 05, 2020 at 6:20 AM Procedure Note Kirill Lang MD - 11/05/2020 Focused Cardiac (Echo) Ultrasound: All required omer must be filled in (*) prior to signature at bottomof worksheet.: Please note that all ultrasound images have been saved and storedin the hospital PACS system and are accessible through this system or[employer].: This is a focused ED [id number] echo : Findings beyond pericardial effusion that are used for clinicaldecision making should be confirmed with cardiology echo.: Exam discussedwith attending Exam type: Diagnostic Indications: Indications (check all that apply-echo):: Palpitations Views Obtained: Views (echo):: PSLA, PSSA, Apical 4 chamber, Sub-xiphoid, IVC Findings: Effusion (echo): no significant effusion Systolic function: normal [place] (echo): RV < LV Exit (echo): aortic root normal (<4.0cm) IVC qualitative size (echo): Normal (collapse 50% w respiration) Interpretation: Check all that apply (echo): No acute findings Electronically signed by Kirill Lang on Thursday, November 05, 2020 at6:20 AM Jose ORTIZ IMG US ORDERABLES * ED EKG (11/03/2020 6:13 PM EST) Narrative Jose Cerda PA - 11/03/2020 6:13 PM EST Jose Cerda PA ? 11/03/2020 ??8:51 PM 12 Lead EKG Date/Time: 11/03/2020 5:40 PM Performed by: Jose Cerda PA Authorized by: Jose Cerda PA Previous ECG: ??Previous ECG: ??Unavailable Interpretation: ??Interpretation: normal ?? Rate: ??ECG rate: ??74 ??ECG rate assessment: normal ?? Rhythm: ??Rhythm: sinus rhythm ?? Ectopy: ??Ectopy: PVCs ?PVCs: ??Infrequent (One seen in this EKG) QRS: ??QRS axis: ??Normal ??QRS intervals: ??Normal Conduction: ??Conduction: normal ?? ST segments: ??ST segments: ??Normal T waves: ??T waves: normal ?? Jose ORTIZ PROCEDURE/MINOR SURG ICAL ORDERABLES * Troponin I (POC) ([facility]) (11/03/2020 5:54 PM EST) Troponin I (POC) 0.00 0.00 - 0.08 ng/mL 11/03/2020 5:54 PM EST [facility] Blood 11/03/2020 5:54 PM EST 11/03/2020 6:06 PM EST Provider Not In System POCT ORDERABLES - DEVICE Performing Organization Address [facility] de Phone Number [facility] [address] [place] [address] * TSH w/reflex to FT4 (11/03/2020 5:53 PM EST) Thyroid Stimulating Hormone 3.040 See Comment ??IU/mL 11/03/2020 7:24 PM EST [facility] Comment: Male & Non- Females: 0.270-4.200 ??IU/mL 1st Trimester: 0.110-3.480 ??IU/mL 2nd Trimester: 0.320-3.850 ??IU/mL Blood Venipuncture / Unknown 11/03/2020 5:53 PM EST 11/03/2020 6:13 PM EST Kirill Lang MD LAB BLOOD ORDERABLES Performing Organization Address [facility] Co de Phone Number [facility] [address] [place] [address], [facility] [phone] * (ABNORMAL) CBC auto differential (11/03/2020 5:53 PM EST) WBC 6.4 4.0 - 10.0 x1000/??L 11/03/2020 6:22 PM [facility] DEPART[facility] OF [facility]ORY MEDICINE RBC 5.0 3.8 - 5.9 M/??L 11/03/2020 6:22 PM [facility] Hemoglobin 15.7 12.0 - 18.0 g/dL 11/03/2020 6:22 PM [facility] Hematocrit 46.3 37.0 - 52.0 % 11/03/2020 6:22 PM [facility] MCV 92.0 78.0 - 94.0 fL 11/03/2020 6:22 PM [facility] MCHC 33.9 31.0 - 36.0 g/dL 11/03/2020 6:22 PM [facility] RDW-CV 11.9 11.5 - 14.5 % 11/03/2020 6:22 PM [facility] Platelets 231 140 - 440 x1000/??L 11/03/2020 6:22 PM [facility] MPV 10.4 6.0 - 11.0 fL 11/03/2020 6:22 PM [facility] ANC (Abs Neutrophil Count) 3.7 1.0 - 11.0 x 1000/??L 11/03/2020 6:22 PM [facility] Neutrophils 57.8 37.0 - 84.0 % 11/03/2020 6:22 PM [facility] Lymphocytes 32.4 8.0 - 49.0 % 11/03/2020 6:22 PM [facility] Absolute Lymphocyte Count 2.1 1.0 - 4.0 x 1000/??L 11/03/2020 6:22 PM [facility] Monocytes 6.2 4.0 - 15.0 % 11/03/2020 6:22 PM [facility] Monocyte Absolute Count 0.4 0.0 - 2.0 x 1000/??L 11/03/2020 6:22 PM [facility] Eosinophils 2.3 0.0 - 7.0 % 11/03/2020 6:22 PM [facility] Eosinophil Absolute Count 0.2 0.0 - 1.0 x 1000/??L 11/03/2020 6:22 PM [facility] Basophil 0.8 0.0 - 4.0 % 11/03/2020 6:22 PM [facility] Basophil Absolute Count 0.1(H) 0.0 - 0.0 x 1000/??L 11/03/2020 6:22 PM [facility] Immature Granulocytes 0.5 0.0 - 3.0 % 11/03/2020 6:22 PM [facility] Absolute Immature Granulocyte Count 0.0 0.0 - 0.3 x 1000/??L 11/03/2020 6:22 PM [facility] nRBC 0.0 0.0 - 1.0 % 11/03/2020 6:22 PM [facility] Absolute nRBC 0.0 0.0 - 0.0 x 1000/??L 11/03/2020 6:22 PM [facility] MCH 31.2(H) 27.0 - 31.0 pg 11/03/2020 6:22 PM [facility] Blood Venipuncture / Unknown 11/03/2020 5:53 PM EST 11/03/2020 6:14 PM EST Kirill Lang MD LAB BLOOD ORDERABLES [facility] [address] [place] [address] [phone] * (ABNORMAL) Basic metabolic panel (11/03/2020 5:53 PM EST) [facility] Sodium 136 136 - 144 mmol/L 11/03/2020 6:47 PM [facility] Potassium 3.8 3.3 - 5.1 mmol/L 11/03/2020 6:47 PM [facility] Comment:Sample slightly hemo lyzed. Results may be falsely elevated due to hemolysis. Chloride 99 98 - 107 mmol/L 11/03/2020 6:47 PM [facility] CO2 24 20 - 30 mmol/L 11/03/2020 6:47 PM [facility] Anion Gap 13 7 - 17 11/03/2020 6:47 PM [facility] Glucose 118(H) 70 - 100 mg/dL 11/03/2020 6:47 PM [facility] BUN 11 6 - 20 mg/dL 11/03/2020 6:47 PM [facility] Creatinine 0.92 0.40 - 1.30 mg/dL 11/03/2020 6:47 PM [facility] Calcium 9.8 8.8 - 10.2 mg/dL 11/03/2020 6:47 PM [facility] BUN/Creatinine Ratio 12.0 8.0 - 23.0 11/03/2020 6:47 PM [facility] eGFR (Afr Amer) >60 >60 mL/min/1.7 3m2 11/03/2020 6:47 PM [facility] Comment: Values under 60mL/min/1.73m2 may indicate CKD if noted for ?? more than 3 months. eGFR is only valid if creatinine is at steady state. eGFR (NON -Jane n) >60 >60 mL/min/1.7 3m2 11/03/2020 6:47 PM [facility] Comment: Values under 60mL/min/1.73m2 may indicate CKD if noted for ?? more than 3 months. eGFR is only valid if creatinine is at steady state. Blood Venipuncture / Unknown 11/03/2020 5:53 PM EST 11/03/2020 6:13 PM EST Kirill Lang MD LAB BLOOD ORDERABLES Performing Organization Address [facility] de Phone Number [facility] [address] [place] [address] * Phosphorus (11/03/2020 5:53 PM EST) Phosphorus 2.7 2.2 - 4.5 mg/dL 11/03/2020 6:47 PM EST [facility] Blood Venipuncture / Unknown 11/03/2020 5:53 PM EST 11/03/2020 6:13 PM EST Kirill Lang MD LAB BLOOD ORDERABLES Performing Organization Address [facility] de Phone Number [facility] [address] [place] [address] * Magnesium (11/03/2020 5:53 PM EST) Magnesium 2.0 1.7 - 2.4 mg/dL 11/03/2020 6:47 PM EST [facility] Blood Venipuncture / Unknown 11/03/2020 5:53 PM EST 11/03/2020 6:13 PM EST Kirill Lang MD LAB BLOOD ORDERABLES Performing Organization Address [facility] de Phone Number [facility] [address] [place] [address] * EKG (11/03/2020 5:34 PM EST) ECG - HEART RATE 74 bpm [facility] EKG QRS Interval 91 ms [facility] EKG QT Interval 390 ms [facility] EKG QTC Interval 438 ms [facility] EKG P [place] 56 deg [facility] EKG QRS [place] -8 deg [facility] EKG T Wave [place] 18 deg [facility] EKG P-R Interval 145 msec [facility] EKG SEVERITY Otherwise Normal ECG severity [facility] EKG Comment::Sinus rhythm:Ventri cular premature complex:Confirmed on behalf of NO EDIT ED READ On 11-05-2020 11:43:08 EST by Eduar 11/03/2020 5:34 PM EST Kirill Lang MD ECG ORDERABLES [facility] EKG documented in this encounter Visit Diagnoses Diagnosis Palpitations- Primary documented in this encounter Administered Medications Inactive Administered Medications - up to 3 most recent administrations Medication Order MAR Action Action Date Dose Rate Site metoprolol tartrate (LOPRESSOR) Immediate Release tablet 25 mg 25 mg, Oral, ONCE, On Fri11/03/20 at 1945, For 1 dose, Hold for SBP < 90 mm Hg or HR < 50 BPM Common Side Effects: Fatigue, dizziness, hypotension, bradycardia. Given 11/03/2020 8:07 PM EST 25 mg sodium chloride 0.9 % (new bag) bolus 1,000 mL 1,000 mL, Intravenous, Administer over 15 Minutes, Bolus from Bag, On Fri11/03/20 at 1745, For 1 dose New Bag 11/03/2020 6:06 PM EST 1,000 mLs 4000 mL/hr documented in this encounter Active and Recently Administered Medications Times are shown in EST. Scheduled Medication Order 11/01/2020 11/02/2020 11/03/2020 metoprolol tartrate (LOPRESSOR) Immediate Release tablet 25 mg (COMPLETED) 25 mg, Oral, ONCE, On Fri11/03/20 at 1945, For 1 dose, Hold for SBP < 90 mm Hg or HR < 50 BPM Common Side Effects: Fatigue, dizziness, hypotension, bradycardia. 2006 (Given - Provid er: Lindsay Sawant RN) sodium chloride 0.9 % (new bag) bolus 1,000 mL (COMPLETED) 1,000 mL, Intravenous, Administer over 15 Minutes, Bolus from Bag, On Fri11/03/20 at 1745, For 1 dose 1806 (New Bag - Prov ider: Lindsay Sawant RN)2007 (Stopped - Provider: Lindsay Sawant RN) documented in this encounter Care Teams Analysis Director Relationship Specialty Start Date End Date No, Pcp (Do Not Change Name) PCP - General 11/03/20 documented as of this encounter
--- OUTSIDE RECORDS SUMMARY | 2024-08-05 16:57 | XMS_ITS ---
Author Name [facility] Organization Unknown Results Test Name/Text Value Interpretation Date Range Source Lymphocytes # Bld Auto 1.99y8950/uL Normal [id number] 0.6 - 3.7 [facility] nRBC # Bld Auto 8l5088/uL Normal [id number] 0 - 1 [facility] Hgb Bld-mCnc 16.7g/dL Normal [id number] 13.2 - 17.1 [facility] Monocytes/leuk NFr Bld Auto 5.2% Normal [id number] 4 - 12 [facility] PMV Bld Auto 10.3fL Normal [id number] 8 - 12 [facility] MCHC RBC Auto-mCnc 35.2g/dL Normal [id number] 31 - 36 [facility] Basophils/leuk NFr Bld Auto 0.7% Normal [id number] 0 - 1.4 [facility] Neutrophils # Bld Auto 3.30w0002/uL Normal [id number] 2 - 7.6 [facility] WBC # Bld Auto 9n9691/uL Normal [id number] 4 - 11 [facility] MCH RBC Qn Auto 32.5pg Normal [id number] 27 - 33 [facility] RBC # Bld Auto 5.14M/uL Normal [id number] 4 - 6 [facility] Imm Granulocytes/leuk NFr Bld Auto 0.2% Normal [id number] 0 - 1 [facility] Platelet # Bld Auto 720t5194/uL Normal [id number] 150 - 420 [facility] Imm Granulocytes # Bld Auto 0.23w9045/uL Normal [id number] 0 - 0.3 [facility] nRBC/100 WBC Bld Auto-Rto 0% Normal [id number] 0 - 1 [facility] Neutrophils/leuk NFr Bld Auto 64.9% Normal [id number] 39 - 72 [facility] Monocytes # Bld Auto 0.95p0742/uL Normal [id number] 0 - 1 [facility] RDW RBC Auto-Rto 12.1% Normal 11 - 15 [facility] Hct VFr Bld Auto 47.5% Normal [id number] 38.5 - 50 [facility] Eosinophil/leuk NFr Bld Auto 1.2% Normal [id number] 0 - 5 [facility] Lymphocytes/leuk NFr Bld Auto 27.8% Normal [id number] 17 - 50 [facility] Eosinophil # Bld Auto 0.57l5864/uL Normal [id number] 0 - 1 [facility] MCV RBC Auto 92.4fL Normal 80 - 100 [facility] BKR WAM BASOPHIL ABSOLUTE COUNT. 0.74y1581/uL Normal [id number] 0 - 1 [facility] Chloride SerPl-sCnc 102mmol/L Normal 98 - 10 7 [facility] Calcium SerPl-mCnc 10.5mg/dL Above high normal 8.8 - 10.2 [facility] HCO3 SerPl-sCnc 28mmol/L Normal 20 - 30 [facility] Glucose SerPl-mCnc 96mg/dL Normal 70 - 100 [facility] GFR/BSA.pred SerPlBld VUY-GCZ-PeWDcj 60mL/min/1.73 m2 Normal [id number] - [facility] BUN SerPl-mCnc 13mg/dL Normal 6 - 20 [facility] Potassium SerPl-sCnc 4.4mmol/L Normal [id number] 3.3 - 5.3 [facility] Sodium SerPl-sCnc 140mmol/L Normal 136 - 144 [facility] BUN/Creat SerPl 11.4 Normal [id number] 8 - 23 [facility] Anion Gap3 SerPl-sCnc 10 Normal [id number] 7 - 1 7 [facility] Creat SerPl-mCnc 1.14mg/dL Normal 0.4 - 1.3 [facility] Albumin/Glob SerPl 1.7 Normal 1 - 2.2 [facility] Prot SerPl-mCnc 7.3g/dL Normal 6.6 - 8.7 [facility] Globulin Plas-mCnc 2.7g/dL Normal 2.3 - 3. 5 [facility] AST/ALT SerPl-cRto 1.1 Normal - [facility] ALP SerPl-cCnc 68U/L Normal 9 - 122 [facility] ALT SerPl w/o P-5'-P-cCnc 25U/L Normal 9 - 59 [facility] Bilirub SerPl-mCnc 0.5mg/dL Normal - [facility]ub Direct SerPl-mCnc 0.2mg/dL Normal - [facility] AST SerPl w P-5'-P-cCnc 27U/L Normal 10 - 35 [facility] Albumin SerPl BCG-mCnc 4.6g/dL Normal 3.6 - 4.9 [facility] Lipase SerPl-cCnc 23U/L Normal 11 - 55 [facility] Troponin T SerPl HS-mCnc 9ng/L Normal - [facility] Troponin T SerPl HS-mCnc -3ng/L Normal [facility]
== END 2024-08-05 16:49 | disposition home or self-care (01) ==
PROVIDERS: Emergency Provider Emergency Medicine
DX: R07.9 Chest pain, unspecified (principal)
CPT/HCPCS: 36415; 80053; 93005; 99285; 71046; 83735; 83880; 84484; 85025; 93010; 99284